=== PATIENT | female | born 1980 | race Caucasian/White ===

== ENCOUNTER → 2021-06-06 | Outpatient (CLI) | payer OTHER ==
[2021-06-09 14:37] LABS: CORONAVIRUS (COVID19) CSH-NRL Negative (Negative)
== END | disposition home or self-care (01) ==
LOC: LAB SHORT 12:03
PROVIDERS: Physician Assistant
DX: Z20.822 Contact with and (suspected) exposure to COVID-19 (principal)
CPT/HCPCS: U0003

== ENCOUNTER 2024-06-22 18:02 | Emergency (ER) | payer OTHER ==
[~2024-06-22] VITALS: Ht 157.5 cm; Wt 71.7 kg
[2024-06-22 18:34] VITALS: BP 130/109
[2024-06-22] MEDS ORDERED: Ketorolac Tromethamine 30mg Vial IM ONE (20:35)
[2024-06-22] MEDS ORDERED: RX Prepack 6 Tabs Oxycodone 5mg UD ONE (20:35)
[2024-06-22] MEDS ORDERED: RX Prepack 2 Tabs Ondansetron ODT 4MG UD ONE (20:35)
[2024-06-22] MEDS ORDERED: ONDA4 PO (20:36)
[2024-06-22] MEDS ORDERED: Ondansetron 4 MG TAB PO ONE (20:40)
[2024-06-22] MEDS ORDERED: OxyCODONE HCL 5 MG TAB PO ONE (20:40)
== END 2024-06-22 20:49 | disposition home or self-care (01) ==
LOC: ER 18:02
DX: M79.671 Pain in right foot (principal)
CPT/HCPCS: 29515; 73630; 96372-59; 99283-25; A9270; J1885

== ENCOUNTER → 2024-06-24 | Outpatient (CLI) | payer OTHER ==
[~2024-06-24] MED LIST: ONDA4 PO
[2024-06-24 15:21] LABS: BASOPHILS ABSOLUTE AUTO 0.04 K/mm3 (0.00-0.23); BASOPHILS PERCENT AUTO 1 % (0-2); EOSINOPHILS ABSOLUTE AUTO 0.02 K/mm3 (0.00-0.68); EOSINOPHILS PERCENT AUTO 0 % (0-6); Hematocrit 37.1 % (33.0-51.0); IMMATURE GRAN ABSOLUTE AUTO 0.01 K/mm3 (0.00-0.10); IMMATURE GRAN PERCENT AUTO 0 % (0-1); LYMPHOCYTES ABSOLUTE AUTO 1.84 K/mm3 (0.84-5.20); LYMPHOCYTES PERCENT AUTO 34 % (21-46); MONOCYTES ABSOLUTE AUTO 0.51 K/mm3 (0.16-1.47); MONOCYTES PERCENT AUTO 9 % (4-13); Mean Corpuscular HGB 33.4 pg (26.0-34.0); Mean Corpuscular Volume 95 fL (80-100); Mean Platelet Volume 9.5 fL (9.1-12.4); NEUTROPHILS ABSOLUTE AUTO 2.98 K/mm3 (1.96-9.15); NEUTROPHILS PERCENT AUTO 55 % (41-73); Platelet Count 271 K/mm3 (150-400); RDW Coefficient Variation 11.5 % (11.7-14.2); RDW Standard Deviation 39.9 fL (35.1-46.3); Red Blood Cell Count 3.89 M/mm3 (3.80-5.20)
[2024-06-24 15:32] LABS: Albumin, Blood 3.7 g/dL (3.4-5.0); Bilirubin, Total 0.2 mg/dL (0.1-1.0); Creatinine, Blood 0.8 mg/dL (0.40-1.00); Globulin, Blood 3.6 g/dL (2.2-4.0); Potassium, Blood 3.6 mmol/L (3.5-5.5); Total Protein, Blood 7.3 g/dL (6.4-8.2); Uric Acid, Blood 3.5 mg/dL (2.6-6.0)
[2024-06-26 12:54] LABS: CYCLIC CITRULLINATED PEP,IGG/A 3 Units (0-19)
== END | disposition home or self-care (01) ==
LOC: LAB SHORT 15:15 → LAB 15:15
PROVIDERS: Chiropractor
DX: M25.471 Effusion, right ankle (principal)
CPT/HCPCS: 80053; 84550; 85025; 85651; 86141; 86200; 86430